=== PATIENT | male | born 1955 | race Caucasian/White ===

== ENCOUNTER 2017-02-06 09:02 | Observation (INO) | payer MEDICAID ==
[~2017-02-06] VITALS: Ht 180.3 cm; Wt 110.0 kg
[2017-02-06 09:26] VITALS: BP 163/84; PULSE 85; RESP 16; TEMP 98.2; O2SAT 95
--- NOTE | 2017-02-06 09:39 | PD ---
HPI Chief Complaint: Edema Time Seen by Provider: 09:38 Travel History International Travel<30 days: No Contact w/Intl Traveler<30days: No Traveled to known affect area: No History of Present Illness HPI 61-year-old male came to the emergency room with history of right leg swelling that has been going on for more than 2 months. Patient says that he initially went to the [facility] in [facility] where he was discharged home on Keflex and Bactrim. Patient finished a ten-day course but the leg did not look any different. At that time he also had associated fever and after the antibiotic the fever seemed to have gone. He went to see his primary care at this point and was given a medication for 5 days in addition and he finished that and once again the leg swelling did not go down. He recently went to see his primary care again were he was given a dose of clindamycin and was told that after finishing the course if the leg does not feel better he needed to go to the [facility] to see an infectious disease specialist. That's why the patient is here now since his leg is still swollen. No history of fever or pain. No history of shortness of breath or chest pain. Vital signs were relatively stable. Patient does not appear to be in any distress. He is here with the expectation to see an infectious disease specialist. Upon asking patient said that nobody had ever done an ultrasound of his leg. [facility] Past Medical History Narrative Medical List of his past medical, surgical, social and family history is reviewed from the nursing note. Cardiovascular Problems: Yes (HTN) Social History Tobacco Use: No Allergies-Medications (Allergen,Severity, Reaction): Coded Allergies: No Known Allergies (Unverified , 02/06/17) Comments No known drug allergies. Reported Meds & Prescriptions Reported Meds & Active Scripts Active Reported Benazepril (Benazepril HCl) 40 Mg Tab 40 Mg PO DAILY Amlodipine (Amlodipine Besylate) 10 Mg Tab 10 Mg PO DAILY Narrative Medication Awaiting for the nurse to give the medication reconciliation. However patient showed me the blood pressure medication that he is taking which is amlodipine and Benazepril. Review of Systems Except as stated in HPI: all other systems reviewed are Neg Physical Exam Narrative GENERAL: Awake, alert, no obvious distress SKIN: Focused skin assessment warm/dry. Right leg swelling, skin is tense, erythematous and 1+ edema. Distal pulses and sensation intact. No swelling about the knee HEAD: Atraumatic. Normocephalic. EYES: Pupils equal and round. No scleral icterus. No injection or drainage. ENT: No nasal bleeding or discharge. Mucous membranes pink and moist. NECK: Trachea midline. No JVD. CARDIOVASCULAR: Regular rate and rhythm. No murmur appreciated. RESPIRATORY: No accessory muscle use. Clear to auscultation. Breath sounds equal bilaterally. GASTROINTESTINAL: Abdomen soft, non-tender, nondistended. Hepatic and splenic margins not palpable. MUSCULOSKELETAL: No obvious deformities. No clubbing. No cyanosis. No edema. NEUROLOGICAL: Awake and alert. No obvious cranial nerve deficits. Motor grossly within normal limits. Normal speech. PSYCHIATRIC: Appropriate mood and affect; insight and judgment normal. Data Data Last Documented VS Vital Signs Date Time Temp Pulse Resp B/P Pulse Ox O2 Delivery O2 Flow Rate FiO2 02/06/17 09:49 20 02/06/17 09:26 98.2 85 163/84 95 Orders Complete Blood Count With Diff (02/06/17 09:42) Basic Metabolic Panel (Bmp) (02/06/17 09:42) Us Leg Venous Doppler (02/06/17 ) Prothrombin Time / Inr (Pt) (02/06/17 09:44) C-Reactive Protein (Crp) (02/06/17 09:44) Westergren Sedimentation Rate (02/06/17 09:44) Admit Order (Ed Use Only) (02/06/17 11:37) Labs Laboratory Tests Test 02/06/17 09:56 White Blood Count 7.3 TH/MM3 Red Blood Count 5.07 MIL/MM3 Hemoglobin 15.2 GM/DL Hematocrit 43.4 % Mean Corpuscular Volume 85.7 FL Mean Corpuscular Hemoglobin 29.9 PG Mean Corpuscular Hemoglobin 34.9 % Concent Red Cell Distribution Width 13.7 % Platelet Count 220 TH/MM3 Mean Platelet Volume 7.4 FL Neutrophils (%) (Auto) 66.7 % Lymphocytes (%) (Auto) 23.0 % Monocytes (%) (Auto) 7.8 % Eosinophils (%) (Auto) 2.2 % Basophils (%) (Auto) 0.3 % Neutrophils # (Auto) 4.9 TH/MM3 Lymphocytes # (Auto) 1.7 TH/MM3 Monocytes # (Auto) 0.6 TH/MM3 Eosinophils # (Auto) 0.2 TH/MM3 Basophils # (Auto) 0.0 TH/MM3 CBC Comment DIFF FINAL Differential Comment Erythrocyte Sedimentation Rate 6 mm/hr Prothrombin Time 10.2 SEC Prothromb Time International 0.9 RATIO Ratio Sodium Level 142 MEQ/L Potassium Level 3.8 MEQ/L Chloride Level 110 MEQ/L Carbon Dioxide Level 25.6 MEQ/L Anion Gap 6 MEQ/L Blood Urea Nitrogen 22 MG/DL Creatinine 0.81 MG/DL Estimat Glomerular Filtration 98 ML/MIN Rate Random Glucose 96 MG/DL Calcium Level 8.8 MG/DL C-Reactive Protein LESS THAN 0.29 MG/DL MDM Medical Decision Making Medical Screen Exam Complete: Yes Emergency Medical Condition: Yes Medical Record Reviewed: Yes Differential Diagnosis DVT, venous congestion Narrative Course 9:56 AM I ordered an ultrasound of his leg to rule out DVT. Waiting for the blood test results. 10:55 AM most of the blood test results are back. BUN is slightly elevated. Sedimentation rate is pending. However rest of the blood test results are within normal limit. Awaiting for the ultrasound to be read. 11:11 AM ultrasound does not show a DVT. Sedimentation rate is still pending. I discussed with the patient at this point that I have no other leads at this instance. However I could admit him for outpatient treatment failure so that while he is in the hospital hopefully the root cause of his leg swelling can be figured out. Patient has agreed with that. I am waiting for the hospitalist to call back. Procedures EKG Prior to Arrival: No Diagnosis Primary Impression: Right leg swelling Additional Impression: Failure of outpatient treatment Admitting Information Admitting Physician Requests: Nichole Nina MD Feb 06, 2017 09:39
[2017-02-06] MEDS ORDERED: BENA40TA PO (09:58)
[2017-02-06] MEDS ORDERED: AMLO10TA2 PO (09:58)
[2017-02-06 10:19] LABS: AUTOMATED NEUTROPHIL # 4.9 TH/MM3 (1.8-7.7); BASOPHIL % 0.3 % (0.0-2.0); EOSINOPHIL # 0.2 TH/MM3 (0-0.4); EOSINOPHIL % 2.2 % (0.0-4.0); HEMATOCRIT 43.4 % (39.0-51.0); HEMO FLAGS DIFF FINAL; LYMPHOCYTE # 1.7 TH/MM3 (1.0-4.8); MEAN CELL VOLUME 85.7 FL (80.0-100.0); MEAN CORPUSCULAR HEMOGLOBIN 29.9 PG (27.0-34.0); MEAN CORPUSCULAR HGB CONC 34.9 % (32.0-36.0); MONO % 7.8 % (0.0-8.0); NEUT % 66.7 % (16.0-70.0); PLATELET COUNT 220 TH/MM3 (150-450); RED BLOOD COUNT 5.07 MIL/MM3 (4.50-5.90); RED CELL DISTRIBUTION WIDTH 13.7 % (11.6-17.2); WHITE BLOOD COUNT 7.3 TH/MM3 (4.0-11.0)
[2017-02-06 10:29] LABS: INTERNATIONAL NORMALIZED RATIO 0.9 RATIO; PROTHROMBIN TIME - PATIENT 10.2 SEC (9.8-11.6)
[2017-02-06 10:40] LABS: BICARBONATE 25.6 MEQ/L (21.0-32.0); POTASSIUM 3.8 MEQ/L (3.5-5.1)
--- NOTE | 2017-02-06 10:55 | RADRPT ---
EXAM DATE/TIME: 02/06/2017 10:02 [facility] COMPARISON: No previous studies available for comparison. INDICATIONS : Right calf swelling and redness. MEDICAL HISTORY : Hypertension. SURGICAL HISTORY : Cholecystectomy. Back surgery with hardware. ENCOUNTER: Initial ACUITY: 2 months PAIN SCORE: 0/10 LOCATION: Right leg. TECHNIQUE: Venous ultrasound of the leg was performed from the inguinal ligament to the proximal calf. Real-jumana e, color Doppler and spectral tracing, compression and augmentation techniques were used. FINDINGS: There is normal compressibility of the deep venous system from the inguinal region to the proximal ca lf. No echogenic clot is seen in the lumen of the common femoral, femoral, popliteal, and posterior tibial veins. There is a normal response of the venous system to proximal and distal augmentation an d respiration. CONCLUSION: 1. No DVT. 2. Subcutaneous edema involving the calf. Leno Kaminski Jr., MD on February 06, 2017 at 10:51 Board Certified Radiologist. This report was verified electronically.
[2017-02-06] MEDS ORDERED: NALOXONE HCL 0.4 MG/ML AMP IV PRN (11:45)
[2017-02-06] MEDS ORDERED: ACETAMINOPHEN 325 MG TAB PO PRN (11:45)
[2017-02-06] MEDS ORDERED: Vancomycin Consult Pharmacy 1 EA OTHER SCH (11:45)
[2017-02-06] MEDS ORDERED: SODIUM CHLORIDE 0.9% FLUSH 10 ML FLUSH IV FLUSH PRN (11:45)
[2017-02-06] MEDS ORDERED: ONDANSETRON HCL 4 MG/2 ML VIAL IVP PRN (11:45)
[2017-02-06] MEDS ORDERED: VANCOMYCIN INJ 1,000 MG in SODIUM CHLOR 0.9% 250 ML INJ 250 ML IV SCH (11:45)
[2017-02-06] MEDS: HEPARIN SODIUM - SQ 10,000 UNITS/ML VIAL SQ SCH ×2 (12:55→23:47)
[2017-02-06] MEDS ORDERED: IOHEXOL 350 MG/ML 10 ML VIAL (for RAD DIAG) IV ONE (13:27)
--- NOTE | 2017-02-06 13:32 | MH ---
cc: MANSOOR BLACKBURN MD DATE OF ADMISSION 02/06/[address] New PRESENTING COMPLAINT Right lower extremity swelling for 2-1/2 months. HISTORY OF PRESENTING ILLNESS The patient is a 61-year-old gentleman with a past medical history significant only for high blood pressure who came into the ER after he was sent nice primary care physician for right lower extremity swelling for more than 2-1/2 months. According to the patient, he first was admitted at [facility] in November of 2016 and was diagnosed to have right lower extremity cellulitis for which she was treated with Keflex and Bactrim for 10 days. Patient subsequently still had some swelling and was treated for five more days with antibiotics by his primary care physician and recently was placed on clindamycin. The patient reports he has been taking these antibiotics, however, even after finishing the course, the leg does not feel better. The patient was advised to come to [facility] to get an ID consultation which is the reason why he presented to the emergency room. The patient denies any fever or pain at this point. No history of shortness of breath or chest pain. In the emergency room, Doppler ultrasound of the lower extremity was done which was negative for DVT. We are admitting the patient for further workup and to rule out other possible etiology of right lower extremity swelling. PAST MEDICAL HISTORY Significant for high blood pressure. PAST SURGICAL HISTORY None MEDICATIONS AT HOME Benazepril and Amlodipine 10. ALLERGIES None SOCIAL HISTORY No smoking, alcohol or drug abuse. 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 REVIEW OF SYSTEMS The review of systems is completely negative other than what is mentioned in the HPI. FAMILY HISTORY Significant for high blood pressure. PHYSICAL EXAM VITAL SIGNS: His vital signs show a temperature of 98.2, pulse 85, respiratory rate 20, systolic blood pressure 163, diastolic 84 and he is sating 95% on room air. GENERAL PHYSICAL EXAMINATION: Awake, alert, and oriented, middle-aged gentleman laying in bed, does not appear to be any acute distress. HEENT: Pupils equally round and reactive to light and accommodation. Extraocular movement intact. No scleral icterus or conjunctival injection was noted. Oral mucosa is moist. NECK: Supple and nontender. No JVD. CARDIOVASCULAR: S1-S2 regular without gallops, murmurs or rubs. RESPIRATORY: Bilateral air entry clear to auscultation. No rales, wheezes or rhonchi. GI: Positive bowel sounds, soft, and nontender. EXTREMITIES: The patient's left lower extremity appear normal. Next right lower extremity is significantly swollen with tense pitting edema as compared to the left. The patient also has mild erythema on the anterior oneal. Pulses are palpable. PERTINENT LAB INVESTIGATIONS WBC count of 7.3, hemoglobin 15.2, hematocrit 43.4, platelet count of 220. Chemistry shows a sodium 142, potassium 3.8, chloride 110, bicarb 25.6, BUN 22, creatinine of 0.81, C-reactive protein less than 0.29, glucose 96, calcium of 8.8. Coagulation studies show INR of 0.9. Imaging study as mentioned above. The patient HAS A lower extremity Doppler which was negative for any DVT and only showed subcutaneous edema involving the calf. DIAGNOSTIC IMPRESSION 1. Right lower extremity edema chronic for 2-1/2 months. 2. Rule out cellulitis. 3. History of hypertension. PLAN 1. The patient is admitted to observation. 2. We will consult ID. 3. We will start with vancomycin 1 gm IV q. 12. We will Consult pharmacy for Vanco dosing. 4. DVT has been ruled out. I will get a CT scan of the abdomen and pelvis to rule out any reason for venostasis and/or Lymphedema and continue a heart healthy diet. 5. Plan of care discussed with the patient. 6. Labs in a.m.. 7. We will continue to follow. MD ARTURO Cruz/JOSE R /1:15 PM /1:26 PM
--- NOTE | 2017-02-06 13:44 | RADRPT ---
EXAM DATE/TIME: 02/06/2017 13:16 [facility] COMPARISON: No previous studies available for comparison. INDICATIONS : Chronic right lower extremity edema. IV CONTRAST: 85 cc Omnipaque 350 (iohexol) IV ORAL CONTRAST: No oral contrast ingested. RADIATION DOSE: 15.49 CTDIvol (mGy) MEDICAL HISTORY : Cardiovascular disease. Hypertension. SURGICAL HISTORY : Cholecystectomy. Fusion, thoracic. ENCOUNTER: Initial ACUITY: 2 months PAIN SCALE: 0/10 LOCATION: Abdomen TECHNIQUE: Volumetric scanning of the abdomen and pelvis was performed. Using automated exposure control and ad justment of the mA and/or kV according to patient size, radiation dose was kept as low as reasonably achievable to obtain optimal diagnostic quality images. DICOM format image data is available electro nically for review and comparison. FINDINGS: LOWER LUNGS: The visualized lower lungs are clear. LIVER: Homogeneously low density without lesion. There is no dilation of the biliary tree. Gallbladder is s urgically absent. SPLEEN: Normal size without lesion. PANCREAS: Within normal limits. KIDNEYS: Normal in size and shape. There is no mass, stone or hydronephrosis. ADRENAL GLANDS: Within normal limits. VASCULAR: There is no aortic aneurysm. BOWEL/MESENTERY: The stomach, small bowel, and colon demonstrate no acute abnormality. There is no free intraperitone al air or fluid. ABDOMINAL WALL: Within normal limits. RETROPERITONEUM: There is no lymphadenopathy. BLADDER: No wall thickening or mass. REPRODUCTIVE: Within normal limits. INGUINAL: There is no lymphadenopathy or hernia. MUSCULOSKELETAL: Orthopedic hardware and prior cement augmentation involving the thoracolumbar spine. CONCLUSION: 1. Hepatic steatosis. 2. Prior cholecystectomy. 3. No mass or adenopathy to account for right lower extremity swelling. Leno Kaminski Jr., MD on February 06, 2017 at 13:38 Board Certified Radiologist. This report was verified electronically.
[2017-02-06] MEDS: VANCOMYCIN INJ 1,500 MG in SODIUM CHLORID 0.9% 500 ML INJ 500 ML IV SCH ×2 (14:10→14:15)
--- NOTE | 2017-02-06 16:13 | PD.ID.CON ---
History of Present Illness Service ID Consult Requested By Dr Lion Reason for Consult RLE cellulitis Primary Care Physician Temo Bates, Diagnoses: History of Present Illness 71 yo male with RLE edema, erythema started 2.5 mos ago He took Keflex, Bactrim and his symptoms improved, but never completely resolved Pt was started on 10 day course of clindamycin and completed it 1 day ago He reports incomplete improvement and presents with persistent swelling and some redness oF his RLE to ER No fever, chills reported His swelling persists , improves by am and gets worse by the end of the day US neg for DVT He also co + diarrhea 4 BMs/day since started on clindamycin Review of Systems Gastrointestinal: COMPLAINS OF: Diarrhea Integumentary: COMPLAINS OF: Rash Except as stated in HPI: all other systems reviewed are Neg Past Family Social History Allergies: Coded Allergies: No Known Allergies (Unverified , 02/06/17) Past Medical History HTN Past Surgical History none Active Ordered Medications Medications where reviewed in EMR Antibiotics Include: vancomycin Family History Reviwed. Non-Contributory. Social History No Tobacco. No ETOH. No Illicit Drugs. Physical Exam Vital Signs Vital Signs Date Time Temp Pulse Resp B/P Pulse Ox O2 Delivery O2 Flow Rate FiO2 02/06/17 09:49 20 02/06/17 09:26 98.2 85 16 163/84 95 Physical Exam CONSTITUTIONAL/GENERAL: This is an adequately nourished patient, in no apparent distress. TUBES/LINES/DRAINS: SKIN: No jaundice, rashes, or lesions. Skin temperature appropriate. Not diaphoretic. HEAD: Atraumatic. Normocephalic. EYES: Pupils equal and round and reactive. Extraocular motions intact. No scleral icterus. No injection or drainage. Fundi not examined. ENT: Hearing grossly normal. Nose without bleeding or purulent drainage. Throat without visible erythema, exudates, masses, or lesions. Edentulous NECK: Trachea midline. Supple, nontender. No palpable thyroid enlargement or nodularity. CARDIOVASCULAR: Regular rate and rhythm without murmurs, gallops, or rubs. No JVD. Peripheral pulses symmetric. RESPIRATORY/CHEST: Symmetric, unlabored respirations. Clear to auscultation. Breath sounds equal bilaterally. No wheezes, rales, or rhonchi. GASTROINTESTINAL: Abdomen soft, non-tender, nondistended. No hepato-splenomegaly , or palpable masses. No guarding. Bowel sounds present. MUSCULOSKELETAL: Extremities without clubbing, cyanosis, + tight non pitting RLE edema. Minimal eruythema No joint tenderness or effusion noted. Minimal tenderness. No ascending lymphangitis or ipsilateral lymphadenopathy LYMPHATICS: No palpable cervical or supraclavicular adenopathy. NEUROLOGICAL: Awake and alert. Motor and sensory grossly within normal limits. Follows commands. Cognitively sharp. Moves all extremities. PSYCHIATRIC: No obvious anxiety/depression. no apparent hallucinations or other psychotic thought process. Laboratory Laboratory Tests Test 02/06/17 09:56 White Blood Count 7.3 Red Blood Count 5.07 Hemoglobin 15.2 Hematocrit 43.4 Mean Corpuscular Volume 85.7 Mean Corpuscular Hemoglobin 29.9 Mean Corpuscular Hemoglobin 34.9 Concent Red Cell Distribution Width 13.7 Platelet Count 220 Mean Platelet Volume 7.4 Neutrophils (%) (Auto) 66.7 Lymphocytes (%) (Auto) 23.0 Monocytes (%) (Auto) 7.8 Eosinophils (%) (Auto) 2.2 Basophils (%) (Auto) 0.3 Neutrophils # (Auto) 4.9 Lymphocytes # (Auto) 1.7 Monocytes # (Auto) 0.6 Eosinophils # (Auto) 0.2 Basophils # (Auto) 0.0 CBC Comment DIFF FINAL Differential Comment Erythrocyte Sedimentation Rate 6 Prothrombin Time 10.2 Prothromb Time International 0.9 Ratio Sodium Level 142 Potassium Level 3.8 Chloride Level 110 Carbon Dioxide Level 25.6 Anion Gap 6 Blood Urea Nitrogen 22 Creatinine 0.81 Estimat Glomerular Filtration 98 Rate Random Glucose 96 Calcium Level 8.8 C-Reactive Protein LESS THAN 0.29 Result Diagram: 02/06/17 0956 02/06/17 0956 Imaging Last Impressions Lower Extremity Ultrasound 02/06/17 0000 Signed Impressions: Service Date/Time: Monday, February 06, 2017 10:02 - CONCLUSION: 1. No DVT. 2. Subcutaneous edema involving the calf. Leno Kaminski Jr., MD Abdomen/Pelvis CT 02/06/17 0000 Signed Impressions: Service Date/Time: Monday, February 06, 2017 13:16 - CONCLUSION: 1. Hepatic steatosis. 2. Prior cholecystectomy. 3. No mass or adenopathy to account for right lower extremity swelling. Leno Kaminski Jr., MD Assessment and Plan Assessment and Plan RLE cellulitis probably in the setting of chronic venous insufficiency ( reports improvement of edema in am); mild to moderate Abx associated diarrhea while on clindamycin Keep RLE elevated edema control is the gutierrez to present recurrence refer to vascular clinic to [facility] for venous insufficientcy - as o/p ro c.diff - cont vanco for now - anticipate discharge soon; no IV abx projected Yulisa Ding MD Feb 06, 2017 16:13
[2017-02-06 16:20] VITALS: BP 129/71; PULSE 67; RESP 15; TEMP 98.2; O2SAT 98
[2017-02-06 21:11] VITALS: BP 127/58; PULSE 74; RESP 19; TEMP 98.6; O2SAT 96
[2017-02-06] MEDS: SODIUM CHLORIDE 0.9% FLUSH 10 ML FLUSH IV FLUSH SCH (23:47)
[2017-02-06 23:54] VITALS: BP 111/68; PULSE 67; RESP 17; TEMP 99; O2SAT 94
[2017-02-07] MEDS ORDERED: VANCOMYCIN INJ 1,500 MG in SODIUM CHLORID 0.9% 500 ML INJ 500 ML IV SCH (02:00)
[2017-02-07 03:47] VITALS: BP 108/59; PULSE 71; RESP 16; TEMP 97.3; O2SAT 95
[2017-02-07 07:17] VITALS: BP 114/60; PULSE 73; RESP 14; TEMP 99; O2SAT 95
[2017-02-07 07:52] LABS: AUTOMATED NEUTROPHIL # 3.9 TH/MM3 (1.8-7.7); BASOPHIL % 0.2 % (0.0-2.0); EOSINOPHIL # 0.2 TH/MM3 (0-0.4); EOSINOPHIL % 3.2 % (0.0-4.0); HEMATOCRIT 38.6 % (39.0-51.0); HEMO FLAGS DIFF FINAL; LYMPH % 18.3 % (9.0-44.0); MEAN CELL VOLUME 85.5 FL (80.0-100.0); MEAN CORPUSCULAR HEMOGLOBIN 29.9 PG (27.0-34.0); MEAN CORPUSCULAR HGB CONC 34.9 % (32.0-36.0); MONO % 8.3 % (0.0-8.0); PLATELET COUNT 193 TH/MM3 (150-450); RED BLOOD COUNT 4.51 MIL/MM3 (4.50-5.90); RED CELL DISTRIBUTION WIDTH 13.7 % (11.6-17.2); WHITE BLOOD COUNT 5.6 TH/MM3 (4.0-11.0)
[2017-02-07 08:37] LABS: POTASSIUM 4.4 MEQ/L (3.5-5.1)
--- NOTE | 2017-02-07 09:22 | HHI.PR ---
Subjective Remarks Resting in bed Legs elevated Denies any chest pain no shortness of breath Temp 99 ([place]) Objective Objective Results - Vital Signs Date Time Temp Pulse Resp B/P Pulse Ox O2 Delivery O2 Flow Rate FiO2 02/07/17 07:17 99.0 73 14 114/60 95 02/07/17 03:47 97.3 71 16 108/59 95 02/06/17 23:54 99.0 67 17 111/68 94 02/06/17 21:11 98.6 74 19 127/58 96 02/06/17 16:20 98.2 67 15 129/71 98 02/06/17 09:49 20 02/06/17 09:26 98.2 85 16 163/84 95 ([place]) Result Diagram: 02/07/17 0727 02/07/17 0727 Other Results Last Impressions Lower Extremity Ultrasound 02/06/17 0000 Signed Impressions: Service Date/Time: Monday, February 06, 2017 10:02 - CONCLUSION: 1. No DVT. 2. Subcutaneous edema involving the calf. Leno Kaminski Jr., MD Abdomen/Pelvis CT 02/06/17 0000 Signed Impressions: Service Date/Time: Monday, February 06, 2017 13:16 - CONCLUSION: 1. Hepatic steatosis. 2. Prior cholecystectomy. 3. No mass or adenopathy to account for right lower extremity swelling. Leno Kaminski Jr., MD ([place]) ROS General: Other (10 point ROS done positives noted) GI: BM (stool pending for C. difficile) Neuro/MS: Other (edema right lower extremity negative for DVT) ([place]) Physical Exam Physical Exam PHYSICAL EXAMINATION GENERAL: This is a well-developed, well-nourished obese male who appears to be in no acute distress. He is alert and awake, HEAD: Normocephalic without any lesion or mass noted. Facial features appear symmetric. OROPHARYNGEAL: Oropharynx without erythema or edema. NECK: Supple. No nuchal rigidity or lymphadenopathy. Trachea midline without deviation. CARDIAC: Regular rhythm, regular rate, S1 and S2 are heard. LUNGS: Clear to auscultation bilaterally. Dull breath sounds due to obesity ABDOMEN: Soft, nontender, no organomegaly or masses. Bowel sounds are heard in all four quadrants. No rebound. No guarding. EXTREMITIES: 2+ right lower leg edema. Pulses equal bilateral. . NEUROLOGICAL: Patient mood and affect appropriate. No focal deficit SKIN:Warm and moist ([place]) A/P Assessment and Plan 1. Right lower extremity edema chronic for 2-1/2 months. 2. Rule out cellulitis. 3. History of hypertension. 4. Hepatic steatosis PLAN Vital signs reviewed temp 99, other trends normal ranges Labs reviewed, stool sample pending for C. difficile check Monitor bowel regimen, states he usually goes first thing in the morning, educated again for the need of a stool sample to rule out C. difficile. Patient notes diarrhea with clindamycin use at home Right lower leg acute on chronic edema, possible cellulitis, and venous insufficiency Appreciate ID consult and following, will follow patient as an outpatient for further workup for venous insufficiency Decreased edema this a.m. as well as erythema, encouraged to maintain elevated as much as possible when sitting or lying IV vancomycin continues Encourage activity out of bed in chair with legs elevated No DVT per leg ultrasound, encourage patient to be active, have good nutrition, weight loss Hypertension, normal trends for now medical management, DVT prophylaxis Discussed with the patient Discussed with nurse \Discussed with Dr. lion, seen on her behalf Discharge planning within the next day or 2 ([place]) Assessment and Plan PATIENT seen and examined appreciate vascular surgery input outpatient follow up with Vascular surgery compression stockings no DVT C Diff PCR + patient had only had 1 BM today will treat with 14 days of po flagyl discussed with patient discussed with nursing staff discussed with Tonja DUPREE (Alanna Lion MD) [place] Feb 07, 2017 09:22 Alanna Lion MD Feb 07, 2017 11:44
--- NOTE | 2017-02-07 09:57 | PD.VS.CON ---
History of Present Illness Chief Complaint: Swelling RLE for 2 months Consult Requested by: History of Present Illness Pt arrives to the ED c/o RLE swelling/warmth times 2 months. Pt stated he has been seen and treated for cellulitis with multiple antibiotics (Bactrim, Keflex , and Clindamycin) over the past few weeks w/o improvement. Pt was sent by his PCP for an evaluation and due to failing out patient therapy. Past/Family/Social History Past Medical History HTN Past Surgical History None Social History Denies Smoking, Etoh and illicit drug usage Family History HTN Home Medications Reported Medications Benazepril 40 Mg Tab40 Mg PO DAILY Ref 0 02/06/17 Amlodipine 10 Mg Tab10 Mg PO DAILY Ref 0 02/06/17 Coded Allergies: No Known Allergies (Unverified , 02/06/17) Review of Systems Integumentary: COMPLAINS OF: Abnormal pigmentation (Redness to RLE with hair loss from mid calf to foot), Nail changes, Pruritus, Rash Physical Exam Vitals/I&O Date Time Temp Pulse Resp B/P Pulse Ox O2 Delivery O2 Flow Rate FiO2 02/07/17 07:17 99.0 73 14 114/60 95 02/07/17 03:47 97.3 71 16 108/59 95 02/06/17 23:54 99.0 67 17 111/68 94 02/06/17 21:11 98.6 74 19 127/58 96 02/06/17 16:20 98.2 67 15 129/71 98 02/06/17 09:49 20 02/06/17 09:26 98.2 85 16 163/84 95 02/07/17 02/07/17 02/07/17 06:59 14:59 22:59 Output Total 250 ml Balance -250 ml Neuro: A&OX3 GCS15 Heart: RRR Lungs: CTA Vascular: Palpable R DP Palpable L DP Extremities: RLE with swelling/warmth present from below the knee to ankle RLE w/ Hair loss from mid calf region to foot Laboratory Tests Test 02/06/17 02/07/17 09:56 07:27 White Blood Count 7.3 5.6 Red Blood Count 5.07 4.51 Hemoglobin 15.2 13.5 Hematocrit 43.4 38.6 Mean Corpuscular Volume 85.7 85.5 Mean Corpuscular Hemoglobin 29.9 29.9 Mean Corpuscular Hemoglobin 34.9 34.9 Concent Red Cell Distribution Width 13.7 13.7 Platelet Count 220 193 Mean Platelet Volume 7.4 7.5 Neutrophils (%) (Auto) 66.7 70.0 Lymphocytes (%) (Auto) 23.0 18.3 Monocytes (%) (Auto) 7.8 8.3 Eosinophils (%) (Auto) 2.2 3.2 Basophils (%) (Auto) 0.3 0.2 Neutrophils # (Auto) 4.9 3.9 Lymphocytes # (Auto) 1.7 1.0 Monocytes # (Auto) 0.6 0.5 Eosinophils # (Auto) 0.2 0.2 Basophils # (Auto) 0.0 0.0 CBC Comment DIFF FINAL DIFF FINAL Differential Comment Erythrocyte Sedimentation Rate 6 Prothrombin Time 10.2 Prothromb Time International 0.9 Ratio Sodium Level 142 141 Potassium Level 3.8 4.4 Chloride Level 110 109 Carbon Dioxide Level 25.6 25.0 Anion Gap 6 7 Blood Urea Nitrogen 22 17 Creatinine 0.81 0.77 Estimat Glomerular Filtration 98 103 Rate Random Glucose 96 92 Calcium Level 8.8 8.4 C-Reactive Protein LESS THAN 0.29 Last 48 hours Impressions Lower Extremity Ultrasound 02/06/17 0000 Signed Impressions: Service Date/Time: Monday, February 06, 2017 10:02 - CONCLUSION: 1. No DVT. 2. Subcutaneous edema involving the calf. Leno Kaminski Jr., MD Abdomen/Pelvis CT 02/06/17 0000 Signed Impressions: Service Date/Time: Monday, February 06, 2017 13:16 - CONCLUSION: 1. Hepatic steatosis. 2. Prior cholecystectomy. 3. No mass or adenopathy to account for right lower extremity swelling. Leno Kaminski Jr., MD Assessment and Plan Assessment: (1) Right leg swelling Status: Acute Plan Pt is a pleasant 61/M who has been c/o multiple episodes of RLE swelling on and off for years. Plan Reviewed Radiology studies (- DVT) Recommend compression stocking to RLE Discussed w/ patient probable venous insufficiency Will have patient f/u in our out patient clinic once D/C Pt agreed w/ plan Chastity DUPREE [facility]/[employer] [phone] Discharge Planning Appointment time and date was given to patient Saravanan,Chastity DUPREE Feb 07, 2017 09:57
[2017-02-07 11:20] VITALS: BP 135/79; PULSE 80; RESP 18; TEMP 98.5; O2SAT 95
[2017-02-07] MEDS: SODIUM CHLORIDE 0.9% FLUSH 10 ML FLUSH IV FLUSH SCH (11:30)
[2017-02-07] MEDS: HEPARIN SODIUM - SQ 10,000 UNITS/ML VIAL SQ SCH (11:31)
[2017-02-07 12:35] LABS: C. DIFF EPI 027 PRESUMPTIVE NEGATIVE (NEGATIVE)
[2017-02-07 12:47] LABS: C. DIFF TOXIN PCR POSITIVE (NEGATIVE)
[2017-02-07] MEDS ORDERED: METR-1 PO (12:59)
[2017-02-08] MEDS ORDERED: PHARMACY ORDERED LAB ONE (01:45)
== END 2017-02-07 15:28 | disposition home or self-care (01) ==
LOC: NEPC 09:02 → NEDA 11:40 → NEPFCDU 15:57
PROVIDERS: ADMIT Internal Medicine; ATTEND Internal Medicine
DX: R60.0 Localized edema (principal); I10 Essential (primary) hypertension; K76.0 Fatty (change of) liver, not elsewhere classified; K52.1 Toxic gastroenteritis and colitis; T36.8X5A Adverse effect of other systemic antibiotics, initial encounter
CPT/HCPCS: 74177; 80048; 85025; 85610; 85652; 86140; 87493; 93971; 99285; G0378; J1644; J3370; J7040; Q9967

== ENCOUNTER → 2017-04-12 | Outpatient (CLI) | payer MEDICAID ==
[~2017-04-12] MED LIST: AMLO10TA2 PO; BENA40TA PO; METR-1 PO
[2017-04-12 11:35] LABS: BASOPHIL % 0.3 % (0.0-2.0); EOSINOPHIL # 0.3 TH/MM3 (0-0.4); EOSINOPHIL % 3.6 % (0.0-4.0); HEMATOCRIT 43.1 % (39.0-51.0); HEMO FLAGS DIFF FINAL; LYMPHOCYTE # 1.7 TH/MM3 (1.0-4.8); MEAN CELL VOLUME 85.9 FL (80.0-100.0); MEAN CORPUSCULAR HEMOGLOBIN 30.3 PG (27.0-34.0); MEAN CORPUSCULAR HGB CONC 35.2 % (32.0-36.0); MONO % 8.5 % (0.0-8.0); NEUT % 65.6 % (16.0-70.0); PLATELET COUNT 208 TH/MM3 (150-450); RED BLOOD COUNT 5.02 MIL/MM3 (4.50-5.90); RED CELL DISTRIBUTION WIDTH 13.1 % (11.6-17.2); WHITE BLOOD COUNT 7.6 TH/MM3 (4.0-11.0)
[2017-04-12 11:45] LABS: APTT (PATIENT) 25.4 SEC (24.3-30.1); INTERNATIONAL NORMALIZED RATIO 0.9 RATIO; PROTHROMBIN TIME - PATIENT 10.2 SEC (9.8-11.6)
[2017-04-12 11:48] LABS: BACTERIA, URINE RARE /hpf; BLOOD, URINE NEG (NEG); COMMENT (UR) CULT NOT INDICATED; CULTURE IF INDICATED CULT NOT INDICATED; GLUCOSE,URINE NEG (NEG); KETONE, URINE NEG (NEG); MUCUS URINE FEW /lpf (OCC); NITRITE,URINE NEG (NEG); PH, URINE 7.5 (5.0-8.5); SQUAMOUS EPITHELIAL CELL URINE 1 /hpf (0-5); URINE COLOR YELLOW (YELLW/STRAW)
[2017-04-12 12:05] LABS: POTASSIUM 3.9 MEQ/L (3.5-5.1)
--- NOTE | 2017-04-12 14:15 | RADRPT ---
EXAM DATE/TIME: 04/12/2017 11:42 [place] COMPARISON: No previous studies available for comparison. INDICATIONS : Evaluate for pneumonia, pneumothorax, or communicable disease. Pre op for right lower leg angiogram. MEDICAL HISTORY : Hypertension. SURGICAL HISTORY : Cholecystectomy. Lumbar fusion. ENCOUNTER: Initial ACUITY: 1 day PAIN SCORE: 0/10 LOCATION: Bilateral chest FINDINGS: PA and lateral views of the chest. Lungs are clear. Focal elevation of the anterior right hemidiaphra gm. Posterior hardware at the thoracolumbar junction. No evidence of pleural effusion or pneumothorax . CONCLUSION: No acute cardiopulmonary disease identified. Hakan Messina MD on April 12, 2017 at 14:13 Board Certified Radiologist. This report was verified electronically.
--- NOTE | 2017-04-13 10:16 | EKG ---
Date Performed: 04/12/2017 Time Performed: 11:10:50 PTAGE: 61 years EKG: Sinus rhythm MARKED LEFT AXIS DEVIATION LOW QRS VOLTAGE IN PRECORDIAL LEADS POSSIBLE ANTERIOR MYOCARDIAL INFARCTI ON, OF INDETERMINATE AGE ABNORMAL ECG NO PREVIOUS TRACING DOCTOR: Flip Cano Interpretating Date/Time 04/13/2017 10:12:37
== END ==
LOC: CPRE 10:47
PROVIDERS: ATTEND Surgery
DX: Z01.810 Encounter for preprocedural cardiovascular examination (principal); Z01.811 Encounter for preprocedural respiratory examination; Z01.812 Encounter for preprocedural laboratory examination; I87.2 Venous insufficiency (chronic) (peripheral); R94.31 Abnormal electrocardiogram [ECG] [EKG]
CPT/HCPCS: 36415; 71020; 80048; 81001; 85025; 85610; 85730; 93005

== ENCOUNTER 2017-04-17 08:34 | Day surgery (SDC) | payer MEDICAID ==
[~2017-04-17] VITALS: Ht 180.3 cm; Wt 109.6 kg
[~2017-04-17 08:34] MED LIST changes: -METR-1 PO
[2017-04-17] MEDS ORDERED: IOHEXOL 350 MG/ML 50 ML BTL (for Cath Lab) OTHER ONE (08:35)
[2017-04-17 09:17] VITALS: BP 134/83; PULSE 69; RESP 17; TEMP 98.4; O2SAT 96
[2017-04-17 09:48] LABS: AUTOMATED NEUTROPHIL # 4.9 TH/MM3 (1.8-7.7); BASOPHIL % 0.3 % (0.0-2.0); EOSINOPHIL # 0.3 TH/MM3 (0-0.4); EOSINOPHIL % 3.9 % (0.0-4.0); HEMATOCRIT 42.4 % (39.0-51.0); LYMPH % 22.4 % (9.0-44.0); LYMPHOCYTE # 1.7 TH/MM3 (1.0-4.8); MEAN CELL VOLUME 85.2 FL (80.0-100.0); MEAN CORPUSCULAR HEMOGLOBIN 30.7 PG (27.0-34.0); MONO % 7.8 % (0.0-8.0); NEUT % 65.6 % (16.0-70.0); PLATELET COUNT 221 TH/MM3 (150-450); RED BLOOD COUNT 4.98 MIL/MM3 (4.50-5.90); RED CELL DISTRIBUTION WIDTH 13.2 % (11.6-17.2); WHITE BLOOD COUNT 7.4 TH/MM3 (4.0-11.0)
[2017-04-17 09:50] LABS: HEMO FLAGS AUTO DIFF
[2017-04-17 09:53] LABS: INTERNATIONAL NORMALIZED RATIO 0.9 RATIO
[2017-04-17 09:56] LABS: PROTHROMBIN TIME - PATIENT 10.2 SEC (9.8-11.6)
--- NOTE | 2017-04-17 09:58 | PD.VS.PN ---
Pre-operative Note Pre-operative diagnosis: R LE recurrent cellulitis, possible AVM Planned procedure: R LE angiogram and possible embolization of AVM Interval History: Pt has been feeling well, no F/C. Ready for surgery Labs: Laboratory Results Test 04/17/17 09:13 Hematocrit 42.4 % (39.0-51.0) Hemoglobin 15.3 GM/DL (13.0-17.0) Mean Corpuscular Hemoglobin 30.7 PG (27.0-34.0) Mean Corpuscular Hemoglobin Concent 36.0 % (32.0-36.0) Mean Corpuscular Volume 85.2 FL (80.0-100.0) Mean Platelet Volume 8.0 FL (7.0-11.0) Platelet Count 221 TH/MM3 (150-450) Prothromb Time International Ratio 0.9 RATIO Red Blood Count 4.98 MIL/MM3 (4.50-5.90) Red Cell Distribution Width 13.2 % (11.6-17.2) White Blood Count 7.4 TH/MM3 (4.0-11.0) Blood: none needed Imaging: will make in OR Orders: NPO Ancef 2g IV OCTOR Post-operative destination: DOCU Operative site marked: Yes Consent: Informed consent has been obtained from Jaden Wade. I have explained the procedure in detail and discussed the risks, benefits, and potential complications. All questions have been answered. Ruben Campuzano MD Apr 17, 2017 09:58
[2017-04-17] MEDS ORDERED: SODIUM BICARBONATE 100 MEQ in D5W 1000 ML IV SCH (10:00)
[2017-04-17 10:05] LABS: BICARBONATE 24.5 MEQ/L (21.0-32.0); POTASSIUM 3.9 MEQ/L (3.5-5.1)
[2017-04-17 10:19] LABS: SCAN/DIFF AUTO DIFF CONFIRMED
[2017-04-17] MEDS ORDERED: MIDAZOLAM HCL 2 MG/2 ML VIAL ONE (11:46)
[2017-04-17] MEDS ORDERED: HEPARIN-NS/PF INJ 1,000 ML ONE (11:49)
[2017-04-17] MEDS ORDERED: HEPARIN SODIUM - IV 10,000 UNITS/10 ML VIAL ONE (11:53)
--- NOTE | 2017-04-17 12:21 | HHI.PR ---
Immediate Post Op Note Procedure Date: Apr 17, 2017 Pre Op Diagnosis: R LE venous insufficiency, possible AVM Post Op Diagnosis: R LE venous insufficiency, normal arterial anatomy Surgeon: Ruben Campuzano Mold Burner(s): none Procedure: Aortogram w/ R LE angiogram Findings: normal anatomy, no AVM Additional Information: L ENERGY TRADING ANALYST 4F sheath removed in OR Complications: none Specimen(s) removed: none Estimated blood loss: 10mL Anesthesia: MAC Drains: None Fluids: 500mL IVF Patient to: Other (DOCU) Patient Condition: Good Implant/Devices: SEE IMPLANT LOG (if applicable) Date/Time of Procedure: SEE SURGICAL CARE RECORD Ruben Campuzano MD Apr 17, 2017 12:21
--- NOTE | 2017-04-17 12:23 | CATHPROC ---
[employer] HIS Report Study Information Study Number Admission Scheduled Start Study Start [id number] Apr 17 2017 8:34AM 04/17/2017 Apr 17 2017 11:35AM [place] Service Cath Endovascular Study Admit Source Facility Department Other [facility] - Senior Sales Assistant Physician and Clinical Staff Initial Ruben Silva Printer Slotter Helper Wilfrido Padron,RN Recorder Yinka Brower,RT(R) Recorder Alina Joseph,RT(R) (BS) Scrub John Hilario,RT(R) Procedures Performed Procedure Location (Site) Vessel Name Abdominal Angiogram Abd Aorta (A3) Aorta Wire insertion Fem Art (left) Femoral Art Equipment Time Software Implementation Specialist Description Size Mfg Part Number Used/Scraped INTRODUCER SET, [id number] 12:00 [employer] FR 5 Used MICROPUNCTURE *[id number] 12:03 NYCOMED OMNIPAQUE, 350 MG, 150ML 150ML [id number] Used [id number] 12:01 TERUMO MEDICAL SHEATH, FR4 TERUMO (10CM) FR 4 Used *[id number] History: Allergies Allergy Reaction No Known Allergies Labs Hgb (g/dl) Hct (%) WBC (l/cumm) Platelets (thousands) 11.60-17.00 35.00-51.00 4.00-11.00 150.00-450.00 15.3 42.4 7.4 221 Glucose (mg/dl) BUN (mg/dl) Creatinine (mg/dl) BUN:Creatinine (1:x) 74.00-106.00 7.00-18.00 0.50-1.30 10.00-20.00 100 17 0.8 21.3 Na (meq/l) K (meq/l) 136.00-145.00 3.50-5.10 140 3.9 INR (PTT:PT) 0.90-1.10 0.9 CPK-MB (ng/ML) 0.50-3.60 Not Drawn Medication Medication Total Dose (Bolus/Oral) Medication Total Dosage/Unit 1% XYLOCAINE 20 mL FENTANYL 75 mcg VERSED 2 mg Medications (Bolus/Oral) Medication Time Given Dosage/Unit Administered By Reason VERSED 04/17/2017 11:50:56 AM 1 mg Wilfrido Padron 1 mg VERSED given in lab by Wilfrido Padron RN in Left Antecubital via Peripheral IV. FENTANYL 04/17/2017 11:51:10 AM 25 mcg Wilfrido Padron 25 mcg FENTANYL given in lab by Wilfrido Padron RN in Left Antecubital via Peripheral IV. 1% XYLOCAINE 04/17/2017 11:56:46 AM 20 mL JanettzorRuben 20 mL 1% XYLOCAINE given in lab by Ruben Campuzano in Left Groin via Subcutaneous. VERSED 04/17/2017 11:57:08 AM 1 mg SandrarRuben 1 mg VERSED given in lab by Ruben Campuzano in Left Antecubital via Peripheral IV. FENTANYL 04/17/2017 11:58:34 AM 50 mcg Wilfrido Padron 50 mcg FENTANYL given in lab by Wilfrido Padron RN in Left Antecubital via Peripheral IV. Medication (Drip) Medication Time Given Dosage/Unit Concentration/Unit Diluent (ml) Solution IV Solutions 04/17/2017 11:41:56 AM 0 mL (IV) 500 NaCl .9 IV Solutions given in lab by Wilfrido Padron RN in Left Antecubital via Peripheral IV. Pump/Drip Flow = 100 ml/hr using NaCl .9. Initial Case Assessment Cardiovascular HR Rhythm NIBP Chest Pain 71 reg 142/76 0 Edema Present Skin color Skin None Normal Warm Dry Circulatory - Right Pulses Femoral 3 Scale (0,1,2,3,4,d) Circulatory - Left Pulses Femoral 3 Scale (0,1,2,3,4,d) Circulatory - Lower Extremities Color Lower Right Color Lower Left Normal Normal Neurological State Oriented to time-place- Alert Moves all extremities person Respiration - General Respiration Rate SpO2 (%) (B/min) 13 97 Chronological Log Time Study Chronological Log 11:33:22 Patient arrived via Bed. 11:33:31 Patient Name, D.O.B, / Armband Verified By R.N. 11:41:34 Consent signed by the physician and the patient and verified by the Senior Sales Assistant staff. 11:41:36 Pre-op and post- op instructions given; patient acknowledges understanding of instructions. 11:41:39 Verbal Stimulation=2 Physical Stimulation=2 Airway=2 Respiration=2 TOTAL=8. (0=absent, 1=li mited, 2=present) 11:41:40 Presedation assessment performed by Senior Sales Assistant RN. 11:41:43 Patient has been NPO for More than 6Hrs. 11:41:44 Skin Breakdown none per pt 11:41:52 Patient Warmer Placed on the Table. 11:41:55 Flora Prominences Protected 11:41:56 A # 20 IV was noted in the Antecubital (left). Grade = 0 IV Solutions given in lab by Wilfrido Padron RN in Left Antecubital via Peripheral IV. Pump/Drip Flow = 100 ml/hr using 11:41:56 NaCl .9. 11:41:57 History and physical on the chart or being dictated. Assessment: Initial Case, HR=71 BPM, Rhythm=reg, BTMV=608/76 mmhg, Chest Pain=0, Edema=None, Co michell=Normal, Skin = Warm, Dry Right Pulses: Femoral=3 Left Pulses: Femoral=3 11:41:58 Lower Right Extremities: Color=Normal Lower Left Extremities: Color=Normal Neurological: State=Alert, Ox3, BARTON Respiration: Resp=13 B/min, SpO2=97 % Vitals capture started with the following parameters, Patient=Adult, Interval=5 min, Initial Pr yqemxs=081 mmHg, 11:43:55 Deflation Rate=5 mmHg 11:45:16 HR=66 bpm, ARNH=998/76 mmhg, SpO2=97.0 %, Resp=15 B/min, Pain=0, Sammi=10, Swift=2 11:49:04 Bilateral groins prepped with 2% chlorhexidine, and draped after a 3 minute waiting time. 11:49:38 HR=60 bpm, WCBI=098/84 mmhg, SpO2=98.0 %, Resp=17 B/min, Pain=0, Sammi=10, Swift=2 11:50:56 1 mg VERSED given in lab by Wilfrido Padron, RN in Left Antecubital via Peripheral IV. 11:51:10 25 mcg FENTANYL given in lab by Wilfrido Padron RN in Left Antecubital via Peripheral IV. 11:54:39 HR=65 bpm, VLGW=121/78 mmhg, SpO2=98.0 %, Resp=9 B/min, Pain=0, Sammi=10, Swift=2 Time Out. Correct patient, correct procedure, correct physician, power injector loaded with con trast with surgical team 11:55:13 present. Time Out Concurred by MD and individual staff in procedure. 11:55:23 Case Start 11:56:09 Reference ECG taken 11:56:46 20 mL 1% XYLOCAINE given in lab by Ruben Campuzano in Left Groin via Subcutaneous. 11:57:08 1 mg VERSED given in lab by Ruben Campuzano in Left Antecubital via Peripheral IV. 11:58:34 50 mcg FENTANYL given in lab by Wilfrido Padron RN in Left Antecubital via Peripheral IV. 11:58:46 Access site was Left Femoral Artery. 11:59:34 HR=66 bpm, TDSI=102/81 mmhg, SpO2=96.0 %, Resp=19 B/min, Pain=0, Sammi=10, Swift=2 11:59:50 A INTRODUCER SET, MICROPUNCTURE FR 5 was advanced into the Fem Art (left) using the Percuta neous technique. A SHEATH, FR4 TERUMO (10CM) FR 4 was exchanged in the Fem Art (left). This was necessary in ord er to 12:01:08 accomodate a larger catheter. 12:02:27 A catheter was advanced over a wire. OMNIPAQUE, 350 MG, 150ML 150ML was used for injections . 12:04:19 Wire removed 12:04:33 HR=70 bpm, EHLP=881/79 mmhg, SpO2=96.0 %, Resp=19 B/min, Pain=0, Sammi=10, Swift=2 12:05:00 Through a catheter, The Abdominal Aorta was injected with 10 cc's of contrast. 12:06:10 A wire was inserted via Fem Art (left). 12:06:42 Wire removed 12:07:24 Through a catheter, The Femoral Run-off was injected with 4 cc's per second. Injections con tinued down the leg. 12:09:36 HR=69 bpm, PRSM=962/72 mmhg, SpO2=96.0 %, Resp=21 B/min, Pain=0, Sammi=10, Swift=2 12:10:24 A wire was inserted via Fem Art (left). 12:11:05 Catheter was removed 12:11:11 Wire removed 12:11:18 Case End 12:12:59 Catheter(s) removed without difficulty 12:13:01 Sheath removed; pressure applied to access site. 12:13:17 No case complications noted. 12:13:18 Cine recording checked. 12:13:20 Bedside Report will be given. 12:13:23 Contrast Scanned 12:14:13 DOCU called. Spoke to Braeden. 12:14:33 HR=71 bpm, QMFB=967/79 mmhg, SpO2=96.0 %, Resp=20 B/min, Pain=0, Sammi=10, Swift=2 12:19:36 HR=71 bpm, FCRH=527/81 mmhg, SpO2=96.0 %, Resp=24 B/min, Pain=0, Sammi=10, Swift=2 12:21:33 Sterile dressing applied to site 12:28:36 Patient moved to stretcher End Study - Contrast Media Used In Study Contrast Total Opened (mL) Total Used (mL) Total Wasted (mL) Omnipaque 47 47 0 End Study - Maximum Contrast Load Max Contrast Load (mL) 684.9 End Study - Radiation Exposure Fluoro Time (minutes) 2.0 End Study - Sheaths Sheaths Pulled By Sheath Hold Time (min) John Hilario End Study - Patient Disposition Complications Transferred To Interventional Outcome No Senior Sales Assistant Holding No attempt made
--- NOTE | 2017-04-18 06:31 | MP ---
cc: NANDO CAMPUZANO MD DATE OF SURGERY 04/17/2017 PREOPERATIVE DIAGNOSIS Right lower extremity recurrent cellulitis. Possible arteriovenous malformation. POSTOPERATIVE DIAGNOSIS Right lower extremity recurrent cellulitis. Possible arteriovenous malformation. PROCEDURE Aortogram with right lower extremity angiogram. ATTENDING SURGEON Nando Campuzano MD ANESTHESIA Local with sedation. INDICATIONS Mr. Wade is a 61-year gentleman who has recurrent right lower extremity cellulitis. Preoperative duplex imaging suggested he had a possible arteriovenous malformation in his micky-geniculate area. He is taken to the operating room for angiographic evaluation and potential treatment. There is no prior catheter-based imaging available for my review. DESCRIPTION OF PROCEDURE Informed consent was obtained from the patient. He was taken to the operating room and placed supine on the operating room table. An appropriate time-out was taken to identify the patient, the operative site and the planned procedure. The administration of antibiotics was not necessary since this is a clean procedure without planned implantation any foreign object. Everyone in the room agreed with the time-out and we proceeded. His bilateral groins were prepped and draped. The left groin was anesthetized with 1% lidocaine. A 21-gauge micropuncture needle was used to access the left common femoral artery. This was exchanged using Seldinger technique for a micropuncture sheath through which a 0.035 Glidewire was introduced and the micropuncture sheath was exchanged for a 4-Burkinan sheath. A VCF catheter was placed over the wire into the sheath and aortogram and pelvic arteriogram was obtained. The Glidewire was re-introduced and navigated down to the right common femoral artery. The VCF catheter was advanced over this and right lower extremity arteriogram obtained. The wire, catheter and sheath were removed and pressure was held for hemostasis. There were no complications. I was present and scrubbed for the entire procedure. INTERPRETATION OF IMAGES This patient has a patent infrarenal aorta and patent common iliac arteries without any hemodynamically significant stenoses. The patient also has patent hypogastric arteries. The common femoral artery on the right as well as the profunda, SFA and popliteal artery are all patent and there is three vessels down to the mid-calf. There is no evidence of arteriovenous malformation. MD ASHU ForrestF/ROCHELLE /6:06 AM /6:18 AM
== END 2017-04-17 16:48 | disposition home or self-care (01) ==
LOC: HCAT 08:34 → HDIC 08:35 → HCAT 16:48
PROVIDERS: ATTEND Surgery
DX: L03.115 Cellulitis of right lower limb (principal); I87.2 Venous insufficiency (chronic) (peripheral); I10 Essential (primary) hypertension; I73.9 Peripheral vascular disease, unspecified
CPT/HCPCS: 36247; 75710; 80048; 85025; 85610; C1769; C1893; J1644; J2250; J3010; J7070; Q9967

== ENCOUNTER 2017-05-08 12:27 | Day surgery (SDC) | payer MEDICAID ==
[~2017-05-08] VITALS: Ht 180.3 cm; Wt 109.8 kg
[2017-05-08] MEDS ORDERED: SODIUM CHLOR 0.9% 1000 ML INJ 1,000 ML IV SCH (13:00)
[2017-05-08] MEDS ORDERED: SODIUM CHLORIDE 0.9% FLUSH 10 ML FLUSH IV FLUSH PRN (13:00)
[2017-05-08 13:09] VITALS: BP 137/77; PULSE 69; RESP 18; TEMP 97.8; O2SAT 96
[2017-05-08 13:45] LABS: AUTOMATED NEUTROPHIL # 4.9 TH/MM3 (1.8-7.7); BASOPHIL % 0.4 % (0.0-2.0); EOSINOPHIL # 0.3 TH/MM3 (0-0.4); EOSINOPHIL % 3.9 % (0.0-4.0); HEMO FLAGS DIFF FINAL; LYMPHOCYTE # 1.7 TH/MM3 (1.0-4.8); MEAN CORPUSCULAR HEMOGLOBIN 30.8 PG (27.0-34.0); MEAN CORPUSCULAR HGB CONC 35.8 % (32.0-36.0); MONO % 8.8 % (0.0-8.0); NEUT % 64.9 % (16.0-70.0); PLATELET COUNT 219 TH/MM3 (150-450); RED BLOOD COUNT 4.88 MIL/MM3 (4.50-5.90); RED CELL DISTRIBUTION WIDTH 13.3 % (11.6-17.2); WHITE BLOOD COUNT 7.5 TH/MM3 (4.0-11.0)
--- NOTE | 2017-05-08 13:47 | PD.VS.PN ---
Pre-operative Note Pre-operative diagnosis: R LE venous insufficiency and truncal saphenous incompetence Planned procedure: R GSV RFA Interval History: PT feeling well, no changes Labs: Laboratory Results Test 05/08/17 12:55 Hematocrit 42.0 % (39.0-51.0) Hemoglobin 15.0 GM/DL (13.0-17.0) Mean Corpuscular Hemoglobin 30.8 PG (27.0-34.0) Mean Corpuscular Hemoglobin Concent 35.8 % (32.0-36.0) Mean Corpuscular Volume 86.0 FL (80.0-100.0) Mean Platelet Volume 8.3 FL (7.0-11.0) Platelet Count 219 TH/MM3 (150-450) Red Blood Count 4.88 MIL/MM3 (4.50-5.90) Red Cell Distribution Width 13.3 % (11.6-17.2) White Blood Count 7.5 TH/MM3 (4.0-11.0) Blood: none needed Imaging: duplex reviewed Orders: npo ancef 2g iv octor Post-operative destination: DOCU Operative site marked: Yes Consent: Informed consent has been obtained from Jaden Wade. I have explained the procedure in detail and discussed the risks, benefits, and potential complications. All questions have been answered. Ruben Campuzano MD May 08, 2017 13:47
[2017-05-08 13:55] LABS: BICARBONATE 25.8 MEQ/L (21.0-32.0); POTASSIUM 3.8 MEQ/L (3.5-5.1)
[2017-05-08] MEDS ORDERED: SODIUM BICARBONATE 8.4% INJ 50 ML ONE (14:01)
[2017-05-08] MEDS ORDERED: MIDAZOLAM HCL 2 MG/2 ML VIAL ONE ×2 (14:01→14:33)
[2017-05-08] MEDS ORDERED: LIDOCAINE 1%/EPINEPHrine 1:100,000 SOLN 20 ML VIAL ONE (14:01)
[2017-05-08] MEDS ORDERED: ceFAZolin INJ 1,000 MG VIAL ONE (14:14)
[2017-05-08] MEDS ORDERED: LIDOCAINE HCL 2% 50 ML VIAL ONE (14:17)
--- NOTE | 2017-05-08 14:49 | CATHPROC ---
[employer] HIS Report Study Information Study Number Admission Scheduled Start Study Start [id number] May 08 2017 12:27PM 05/08/2017 May 08 2017 1:59PM [place] Service Cath Endovascular Study Admit Source Facility Department Other [facility] - Delivery Man Physician and Clinical Staff Initial Ruben Silva Historical Manuscripts Curator Erickson Kessler,JOES Recorder Yinka Brower,RT(R) Scrub Tasneem Manley,HOT METAL MIXER OPERATOR HELPER TECH2 Equipment Time Telecasting Technician Description Size Mfg Part Number Used/Scraped CATHETER, FR7 CLOSURE FAST [id number] 14:04 BUNDLE-MEDTRONIC 100CM Used RFA 100CM *[id number] 14:04 BUNDLE[employer] PACK, SHANK PIECE TACKER CLOSUREFAST CFP *[id number] Used SHEATH, FR7 CLOSURE FAST [id number] 14:04 BUNDLE-MEDTRON[employer] 7CM Used MICROINTRODUCER *[id number] KIT, CLOSURE FAST TUMESCENT 14:04 MEDTRONIC TIK-01 *[id number] Used INFILTRATION History: Allergies Allergy Reaction No Known Allergies Medication Medication Total Dose (Bolus/Oral) Medication Total Dosage/Unit 1% XYLOCAINE 5 mL FENTANYL 50 mcg VERSED 1.5 mg Medications (Bolus/Oral) Medication Time Given Dosage/Unit Administered By Reason VERSED 05/08/2017 2:16:29 PM 1 mg Janettzor, Ruben 1 mg VERSED given in lab by Ruben Campuzano in Left Antecubital via Peripheral IV. FENTANYL 05/08/2017 2:17:30 PM 50 mcg Janettzor, Ruben 50 mcg FENTANYL given in lab by Ruben Campuzano in Left Antecubital via Peripheral IV. VERSED 05/08/2017 2:19:21 PM 0.5 mg Janettzor, Ruben 0.5 mg VERSED given in lab by Ruben Campuzano via Peripheral IV. 1% XYLOCAINE 05/08/2017 2:21:14 PM 5 mL Sandrar, Ruben 5 mL 1% XYLOCAINE given in lab by Ruben Campuzano via Subcutaneous. right leg Medication (Drip) Medication Time Given Dosage/Unit Concentration/Unit Diluent (ml) Solution ANCEF 05/08/2017 2:20:37 PM 2 g 2 g ANCEF given in lab by Ruben Campuzano via Peripheral IV. IV Solutions 05/08/2017 1:59:36 PM 0 mL (IV) 500 NaCl .9 Patient arrived on IV Solutions in Left Antecubital via Peripheral IV. Pump/Drip Flow = 20 ml/hr usin g NaCl .9. Chronological Log Time Study Chronological Log 13:59:16 Patient arrived via Bed. 13:59:17 Patient Name, D.O.B, / Armband Verified By R.N. 13:59:18 Consent signed by the physician and the patient and verified by the Delivery Man staff. 13:59:19 Pre-op and post- op instructions given; patient acknowledges understanding of instruction s. 13:59:20 Verbal Stimulation=2 Physical Stimulation=2 Airway=2 Respiration=2 TOTAL=8. (0=absent, 1= limited, 2=present) Vitals capture started with the following parameters, Patient=Adult, Interval=5 min, Initial Rcjmanws=711 mmHg, 13:59:23 Deflation Rate=5 mmHg, Cuff placed on Right Arm 13:59:29 Presedation assessment performed by Delivery Man RN. 13:59:31 Patient has been NPO for More than 6Hrs. 13:59:32 Skin Breakdown-none 13:59:35 A # 20 IV was noted in the Antecubital (left). Grade = patent 13:59:36 Patient arrived on IV Solutions in Left Antecubital via Peripheral IV. Pump/Drip Flow = 2 0 ml/hr using NaCl .9. 14:00:03 HR=61 bpm, PODZ=948/81 mmhg, SpO2=96.0 %, Resp=17 B/min, Pain=0, Sammi=10, Swift=2 14:01:57 MD arrived. Time Out. Correct patient, correct procedure, correct physician, power injector notused, surg ical team present. Time 14:03:16 Out Concurred by MD and individual staff in procedure. 14:05:00 HR=68 bpm, HYVH=013/85 mmhg, SpO2=96.0 %, Resp=10 B/min, Swift=2 14:10:38 HR=66 bpm, YBDE=504/79 mmhg, SpO2=96.0 %, Resp=32 B/min, Swift=2 14:15:00 HR=74 bpm, BJNX=463/88 mmhg, SpO2=96.0 %, Resp=27 B/min, Swift=2 14:16:29 1 mg VERSED given in lab by Ruben Campuzano in Left Antecubital via Peripheral IV. 14:17:30 50 mcg FENTANYL given in lab by Ruben Campuzano in Left Antecubital via Peripheral IV. 14:18:43 Case Start 14:19:21 0.5 mg VERSED given in lab by Ruben Campuzano via Peripheral IV. 14:20:03 HR=70 bpm, SIAR=628/78 mmhg, SpO2=92.0 %, Resp=20 B/min, Swift=2 14:20:37 2 g ANCEF given in lab by Ruben Campuzano via Peripheral IV. 14:21:11 Reference ECG taken 14:21:14 5 mL 1% XYLOCAINE given in lab by Ruben Campuzano via Subcutaneous. right leg A SHEATH, FR7 CLOSURE FAST MICROINTRODUCER 7CM was advanced into the Right Leg (lower) using t 14:23:19 Percutaneous technique. 14:25:02 HR=70 bpm, ZXDU=461/74 mmhg, SpO2=92.0 %, Resp=24 B/min 14:29:59 HR=64 bpm, OGXV=516/77 mmhg, SpO2=95.0 %, Resp=7 B/min, Swift=2 14:31:31 A CATHETER, FR7 CLOSURE FAST RFA 100CM 100CM was advanced over a wire. contrast was used f or injections. 14:33:46 Venous ablation in progress right vein lower leg. 14:35:00 HR=72 bpm, LEDS=112/86 mmhg, SpO2=91.0 %, Resp=13 B/min, Swift=2 14:40:03 HR=95 bpm, OVFP=251/77 mmhg, SpO2=94.0 %, Resp=14 B/min 14:43:55 catheter removed 14:44:13 Case End 14:44:17 Sheath removed; pressure applied to access site. 14:45:00 HR=68 bpm, KDDO=196/71 mmhg, SpO2=93.0 %, Resp=17 B/min D 14:49:15 [facility] called. Spoke to TORO 15:00:00 Patient moved to stretcher End Study - Contrast Media Used In Study Contrast Total Opened (mL) Total Used (mL) Total Wasted (mL) Omnipaque 0 0 0 End Study - Radiation Exposure Fluoro Time (minutes) 0.0 End Study - Patient Disposition Complications Transferred To No Telemetry Bed
--- NOTE | 2017-05-08 14:50 | HHI.PR ---
Immediate Post Op Note Procedure Date: May 08, 2017 Pre Op Diagnosis: R LE venous insufficiency Post Op Diagnosis: R LE venous insufficiency Surgeon: Ruben Campuzano Scheme Technician(s): none Procedure: R GSV RFA Findings: no DVT at end of case Complications: none Specimen(s) removed: none Estimated blood loss: 5mL Anesthesia: MAC Drains: None Fluids: 300mL IVF Patient to: Other (DOCU) Patient Condition: Good Date/Time of Procedure: SEE SURGICAL CARE RECORD Ruben Campuzano MD May 08, 2017 14:50
[2017-05-08] MEDS ORDERED: SODIUM CHLORIDE 0.9% FLUSH 10 ML FLUSH IV FLUSH SCH (21:00)
--- NOTE | 2017-05-09 07:10 | MP ---
cc: NANDO CAMPUZANO MD DATE OF SURGERY 05/08/2017 PREOPERATIVE DIAGNOSIS Right upper extremity venous insufficiency with recurrent venostasis cellulitis. POSTOPERATIVE DIAGNOSIS Right upper extremity venous insufficiency with recurrent venostasis cellulitis. PROCEDURE Right great saphenous vein radiofrequency ablation. MEDICATIONS Nando Campuzano MD RESIDENT SURGEON None ANESTHESIA Local with sedation and micky-saphenous tumescence INDICATIONS Mr. Wade is a gentleman who has recurrent right lower exam venostasis cellulitis and he has presented to the emergency department several times. He has tried compression but failed and he was offered right great saphenous vein ablation. DESCRIPTION OF THE PROCEDURE Informed consent was obtained from the patient. He was taken to the operating room, placed supine on the operating table and an appropriate time-out was taken to ensure the patient's identity, operative site and planned procedure. Two grams of Ancef was initiated prior to the skin incision and will be discontinued after a single preoperative dose. Everyone in the room agreed with the time-out and we proceeded. His right leg was prepped and draped and with the patient in reversed reverse position, a local wheel was raised with 1% lidocaine and a 21 gauge micropuncture needle was used to access the right saphenous vein around the knee. This was exchanged using Seldinger technique for a 7-Irish sheath through which the Nettie ClosureFast catheter was introduced. The catheter was positioned 2 cm on the saphenofemoral junction. The patient was then placed in Trendelenburg position and micky-saphenous tumescent anesthesia was administered under ultrasonographic guidance. Once the saphenous vein had been successfully tumesced, the vein was segmentally ablated and the catheter and sheath were removed and pressure held for hemostasis. An ultrasound confirmed there was no DVT. The patient's leg was then wrapped with an Bhupinder bandage from his toes to his groin. The patient was transferred to the recovery room in stable condition. There were no complications and I was present, scrubbed and performed the entire procedure. MD TENA Forrest/JOSE R /6:17 AM /7:01 AM
== END 2017-05-08 16:24 | disposition home or self-care (01) ==
LOC: HDOC 12:27 → HDIC 12:27 → HDOC 16:24
PROVIDERS: ATTEND Surgery
DX: I87.2 Venous insufficiency (chronic) (peripheral) (principal); L03.113 Cellulitis of right upper limb; Z01.818 Encounter for other preprocedural examination; I10 Essential (primary) hypertension
CPT/HCPCS: 36475; 80048; 85025; J0690; J2250; J3010